=== PATIENT | female | born 1965 | race Caucasian/White ===

== ENCOUNTER → 2018-07-01 | Day surgery (SDC) | payer OTHER ==
[~2018-07-01] MED LIST: DEXAMETHASONE SOD PHOS INJ 4 MG/ML VIAL ONE; FENTANYL CITRATE/PF 100MCG/2 ML INJ ONE; IOPAMIDOL 610MG/1ML 300 MG/ML VIAL IV ONE; LEVOFLOXACIN 500MG/D5W 100ML 100 ML IV ONE; LIDOCAINE HCL 2% LOCAL INJ 5 ML SDV VIAL INJ ONE; MIDAZOLAM HCL 2 MG/2 ML VIAL ONE; ONDANSETRON HCL INJ 2 MG/ML VIAL ONE; PROPOFOL IV EMULSION 10 MG/ML 20 ML VIAL ONE; SEVOFLURANE INHAL SOLN 250 ML PEN BTL ONE
[2018-07-01 12:50] VITALS: BP 132/96
--- NOTE | 2018-07-01 12:57 | Operative Report ---
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 OPERATIONS 1. Cystourethroscopy. 2. Transurethral resection of bladder tumor and fulguration of the base. ANESTHETIC: General. [employer]: Dr. Knox. Ms. Wagner is a 52-year-old female who presented with a chief complaint of total gross hematuria. Workup showed that she has a bladder tumor, left side of the trigone, anterior to the left ureteral orifice. CT scan was unremarkable. This patient was placed on the table in the lithotomy position and was prepped and draped in a sterile manner after satisfactory anesthesia. A number 23-Grenadian cystoscope was used, and cystourethroscopy was performed and confirmed previous cystoscopic findings. The urethra was evaluated with the [place] sounds up to #28-Grenadian. A #27-Grenadian resectoscope sheath with a Chandler Obturator was passed the urethra to the bladder. Obturator removed and Garcia resectoscope placed. Attempting resection of the bladder tumor was done 3 times, but there was a malfunction in the resectoscope resectioning mechanism and there was no resection but coagulation. After some time, I elected to abandon this procedure. A #23-Grenadian cystoscope was then passed through the urethra to the bladder and the bladder tumor was grasped and removed while using the cold cup biopsy forceps. All the tumor was removed. The base of the tumor was then fulgurated using the Bugbee electrode and hemostasis was very adequate. Estimated blood loss was maybe 1 mL. Patient tolerated the procedure well and was taken to the recovery room in satisfactory condition. Plans for this lady is to be placed on Cipro 500 mg 1 twice a day for 1 week. Ultracet tablet 1 every 4-6 hours p.r.n. and was given 20. She is to return to the office in 1 week. Job#: [id number] [employer]
== END | disposition home or self-care (01) ==
LOC: OR 08:55
PROVIDERS: ATTEND Specialist
DX: D49.4 Neoplasm of unspecified behavior of bladder (principal); Z88.6 Allergy status to analgesic agent
CPT/HCPCS: 52214; 88304; J1100; J1956; J2001; J2250; J2405; 88305